=== PATIENT | male | born 1960 | race Caucasian/White ===

== ENCOUNTER 2017-07-12 09:54 | Day surgery (SDC) | payer OTHER ==
[~2017-07-12] VITALS: Ht 177.8 cm; Wt 97.1 kg
[~2017-07-12 09:54] MED LIST: ASPI81CH PO; Antivert25 MG PO; Cyclobenzaprine5 MG PO; DIPH50 PO; FAMO20 PO; GLIM2 PO; GLIM4 PO; HYDACE5 PO; IBUP800 PO; INSULANPEN SC; Keflex500 MG PO; LISI10 PO; LISI20 PO; LISINOPRIL 40MG PO; METF500; METF500 PO; METF850 PO; NAPR500 PO; NITR.4SL SL; Naprosyn500 MG PO; Norco 5-325 Ta1 EACH PO; PIOG15; SIMV40 PO; Ultram50 MG PO; VARE1 PO; VICODIN 5-3001 EACH PO; [UNRECOGNIZED DRUG - REMARK]
== END 2017-07-12 22:39 | disposition home or self-care (01) ==
LOC: ORSCMMR 09:54 → ORD 11:30 → ORSCSDS 15:00 → ORSCMMR 22:39 → ORSCSDS 09-15 10:00
PROVIDERS: Internal Medicine Gastroenterology
PROC: 0DBL8ZX Excision of Transverse Colon, Via Natural or Artificial Opening Endoscopic, Diagnostic (ICD-10-PCS; principal; 2017-07-12 11:30)
PROC: 0DBM8ZX Excision of Descending Colon, Via Natural or Artificial Opening Endoscopic, Diagnostic (ICD-10-PCS; principal; 2017-07-12 11:30)
PROC: 0DBN8ZX Excision of Sigmoid Colon, Via Natural or Artificial Opening Endoscopic, Diagnostic (ICD-10-PCS; principal; 2017-07-12 11:30)
DX: Z12.11 Encounter for screening for malignant neoplasm of colon (principal); Z86.010 Personal history of colon polyps; D12.3 Benign neoplasm of transverse colon; D12.4 Benign neoplasm of descending colon; K63.5 Polyp of colon; K64.8 Other hemorrhoids; E11.9 Type 2 diabetes mellitus without complications; I10 Essential (primary) hypertension; E78.5 Hyperlipidemia, unspecified; Z79.899 Other long term (current) drug therapy; Z79.82 Long term (current) use of aspirin; Z87.891 Personal history of nicotine dependence; G47.33 Obstructive sleep apnea (adult) (pediatric)
CPT/HCPCS: 82947; 88305; 93005; 93010; J2250; J3010; J7120

== ENCOUNTER 2020-11-14 04:53 | Emergency (ER) | payer OTHER ==
[~2020-11-14] VITALS: Ht 177.8 cm; Wt 90.7 kg
[~2020-11-14 04:53] MED LIST changes: -ASPI81CH PO; +Aspir 8181 MG PO; +METF500C PO; -METF850 PO
[2020-11-14 06:54] LABS: BASOPHILS ABSOLUTE AUTO 0.02 K/mm3 (0.00-0.23); BASOPHILS PERCENT AUTO 1 % (0-2); EOSINOPHILS PERCENT AUTO 0 % (0-6); Hematocrit 48.1 % (37.0-53.0); Hemoglobin 15.8 g/dL (13.5-17.5); IMMATURE GRAN ABSOLUTE AUTO 0.04 K/mm3 (0.00-0.10); IMMATURE GRAN PERCENT AUTO 1 % (0-1); LYMPHOCYTES PERCENT AUTO 15 % (21-46); MONOCYTES ABSOLUTE AUTO 0.39 K/mm3 (0.16-1.47); MONOCYTES PERCENT AUTO 12 % (4-13); Mean Corpuscular HGB 29.5 pg (26.0-34.0); Mean Corpuscular HGB Conc 32.8 g/dL (31.5-36.5); Mean Corpuscular Volume 90 fL (80-100); Mean Platelet Volume 10.1 fL (9.1-12.4); NEUTROPHILS ABSOLUTE AUTO 2.38 K/mm3 (1.96-9.15); NEUTROPHILS PERCENT AUTO 72 % (41-73); Platelet Count 116 K/mm3 (150-400); RDW Coefficient Variation 13.8 % (11.7-14.2); RDW Standard Deviation 45.4 fL (35.1-46.3); Red Blood Cell Count 5.36 M/mm3 (4.30-5.90); White Blood Cell Count 3.33 K/mm3 (4.00-11.30)
[2020-11-14 07:13] LABS: Alanine Aminotransfer (ALT/SGP 28 U/L (12-78); Albumin/Globulin Ratio 0.8 (0.8-1.8); Alk Phos 41 U/L (50-136); Anion Gap 12 mmol/L (6-16); Aspartate Aminotrans (AST/SGOT 26 U/L (12-37); Bilirubin, Total 0.8 mg/dL (0.1-1.0); Blood Urea Nitrogen 13 mg/dL (8-24); Bun/Creatinine Ratio 19.9 (12.0-20.0); CO2, Blood 22 mmol/L (21-32); Calcium, Blood 8.3 mg/dL (8.5-10.1); Chloride, Blood 103 mmol/L (98-108); Creatinine, Blood 0.65 mg/dL (0.60-1.20); Globulin, Blood 3.9 g/dL (2.2-4.0); Glomerular Filtration Rate >60 (60-); Glucose, Blood 163 mg/dL (70-99); Potassium, Blood 4.2 mmol/L (3.5-5.5); Sodium, Blood 137 mmol/L (136-145); Total Protein, Blood 6.9 g/dL (6.4-8.2); Troponin I <0.015 ng/mL (0.000-0.040)
[2020-11-14] MEDS ORDERED: ALBU90OI INH (07:50)
== END 2020-11-14 08:11 | disposition home or self-care (01) ==
LOC: ER 04:53
PROVIDERS: Emergency Medicine
DX: U07.1 COVID-19 (principal); E11.9 Type 2 diabetes mellitus without complications; Z79.84 Long term (current) use of oral hypoglycemic drugs; Z79.899 Other long term (current) drug therapy; Z79.82 Long term (current) use of aspirin
CPT/HCPCS: 36415; 71045; 80053; 84484; 85025; 93005; 93010; 99284-25

== ENCOUNTER 2020-11-16 17:41 | Inpatient (IN) | payer OTHER ==
[~2020-11-16] VITALS: Ht 177.8 cm; Wt 83.7 kg
[~2020-11-16 17:41] MED LIST changes: +ALBU90OI INH
[2020-11-16] MEDS ORDERED: Hytrin2 MG PO (18:01)
[2020-11-16] MEDS ORDERED: JARDIANCE10 MG PO (18:01)
[2020-11-16 18:14] LABS: BASOPHILS ABSOLUTE AUTO 0.02 K/mm3 (0.00-0.23); BASOPHILS PERCENT AUTO 0 % (0-2); EOSINOPHILS PERCENT AUTO 0 % (0-6); Hematocrit 48.7 % (37.0-53.0); Hemoglobin 16.3 g/dL (13.5-17.5); IMMATURE GRAN ABSOLUTE AUTO 0.11 K/mm3 (0.00-0.10); IMMATURE GRAN PERCENT AUTO 2 % (0-1); LYMPHOCYTES ABSOLUTE AUTO 0.65 K/mm3 (0.84-5.20); LYMPHOCYTES PERCENT AUTO 13 % (21-46); MONOCYTES ABSOLUTE AUTO 0.61 K/mm3 (0.16-1.47); MONOCYTES PERCENT AUTO 12 % (4-13); Mean Corpuscular HGB Conc 33.5 g/dL (31.5-36.5); Mean Corpuscular Volume 87 fL (80-100); Mean Platelet Volume 9.8 fL (9.1-12.4); NEUTROPHILS ABSOLUTE AUTO 3.54 K/mm3 (1.96-9.15); NEUTROPHILS PERCENT AUTO 72 % (41-73); Platelet Count 218 K/mm3 (150-400); RDW Coefficient Variation 13.9 % (11.7-14.2); RDW Standard Deviation 44.9 fL (35.1-46.3); Red Blood Cell Count 5.62 M/mm3 (4.30-5.90); White Blood Cell Count 4.93 K/mm3 (4.00-11.30)
[2020-11-16 18:33] LABS: Alanine Aminotransfer (ALT/SGP 26 U/L (12-78); Albumin, Blood 2.7 g/dL (3.4-5.0); Albumin/Globulin Ratio 0.6 (0.8-1.8); Alk Phos 48 U/L (50-136); Anion Gap 14 mmol/L (6-16); Aspartate Aminotrans (AST/SGOT 28 U/L (12-37); Bilirubin, Total 0.9 mg/dL (0.1-1.0); Blood Urea Nitrogen 12 mg/dL (8-24); Bun/Creatinine Ratio 20.4 (12.0-20.0); CO2, Blood 20 mmol/L (21-32); Calcium, Blood 8.7 mg/dL (8.5-10.1); Chloride, Blood 104 mmol/L (98-108); Creatinine, Blood 0.59 mg/dL (0.60-1.20); Globulin, Blood 4.4 g/dL (2.2-4.0); Glomerular Filtration Rate >60 (60-); Glucose, Blood 209 mg/dL (70-99); Potassium, Blood 3.8 mmol/L (3.5-5.5); Sodium, Blood 138 mmol/L (136-145); Total Protein, Blood 7.1 g/dL (6.4-8.2)
[2020-11-16] MEDS ORDERED: TRULICITY1.5 MG/0.1 SC (19:14)
[2020-11-17 05:56] LABS: BASOPHILS ABSOLUTE AUTO 0.03 K/mm3 (0.00-0.23); BASOPHILS PERCENT AUTO 1 % (0-2); EOSINOPHILS PERCENT AUTO 0 % (0-6); Hemoglobin 15.8 g/dL (13.5-17.5); IMMATURE GRAN PERCENT AUTO 6 % (0-1); LYMPHOCYTES ABSOLUTE AUTO 0.56 K/mm3 (0.84-5.20); LYMPHOCYTES PERCENT AUTO 17 % (21-46); MONOCYTES ABSOLUTE AUTO 0.43 K/mm3 (0.16-1.47); MONOCYTES PERCENT AUTO 13 % (4-13); Mean Corpuscular HGB 29.3 pg (26.0-34.0); Mean Corpuscular HGB Conc 32.9 g/dL (31.5-36.5); Mean Corpuscular Volume 89 fL (80-100); Mean Platelet Volume 9.8 fL (9.1-12.4); NEUTROPHILS PERCENT AUTO 62 % (41-73); Platelet Count 220 K/mm3 (150-400); RDW Coefficient Variation 13.9 % (11.7-14.2); RDW Standard Deviation 45.7 fL (35.1-46.3); Red Blood Cell Count 5.39 M/mm3 (4.30-5.90); White Blood Cell Count 3.22 K/mm3 (4.00-11.30)
[2020-11-17 06:27] LABS: BAND PERCENT MAN 6 % (0-8); BASOPHILS PERCENT MAN 0 % (0-2); EOSINOPHILS PERCENT MAN 0 % (0-6); LYMPHOCYTES % ATYPICAL MANUAL 1 % (0-0); LYMPHOCYTES ABSOLUTE MAN 0.28 K/mm3 (0.84-5.20); LYMPHOCYTES PERCENT MAN 8 % (21-46); METAMYELOCYTE ABSOLUTE MAN 0.03 K/mm3 (0.00-0.00); METAMYELOCYTE PERCENT MAN 1 % (0-0); MONOCYTES ABSOLUTE MAN 0.22 K/mm3 (0.16-1.47); MONOCYTES PERCENT MAN 7 % (4-13); MYELOCYTE ABSOLUTE MAN 0.03 K/mm3 (0.00-0.00); MYELOCYTE PERCENT MAN 1 % (0-0); NEUTROPHILS ABSOLUTE MAN 2.64 K/mm3 (1.96-9.15); SEG NEUTROPHILS PERCENT MAN 76 % (41-73); TOTAL CELLS COUNTED 100
[2020-11-17 06:32] LABS: Alanine Aminotransfer (ALT/SGP 24 U/L (12-78); Albumin, Blood 2.5 g/dL (3.4-5.0); Albumin/Globulin Ratio 0.6 (0.8-1.8); Alk Phos 46 U/L (50-136); Anion Gap 14 mmol/L (6-16); Aspartate Aminotrans (AST/SGOT 21 U/L (12-37); Bilirubin, Total 0.8 mg/dL (0.1-1.0); Blood Urea Nitrogen 14 mg/dL (8-24); Bun/Creatinine Ratio 22.6 (12.0-20.0); CO2, Blood 19 mmol/L (21-32); Calcium, Blood 8.3 mg/dL (8.5-10.1); Chloride, Blood 106 mmol/L (98-108); Creatinine, Blood 0.62 mg/dL (0.60-1.20); Globulin, Blood 4.2 g/dL (2.2-4.0); Glomerular Filtration Rate >60 (60-); Glucose, Blood 255 mg/dL (70-99); Sodium, Blood 139 mmol/L (136-145); Total Protein, Blood 6.7 g/dL (6.4-8.2)
--- NOTE | 2020-11-17 18:42 | NUR ---
PATIENT IS ALERT AND ORIENTED. ON 10L O2 NC. INDEPENDENT WITH URINAL. BG ACHS. TELE IN PLACE AT . [facility] DIET.
--- NOTE | 2020-11-18 04:03 | NUR ---
SHIFT SUMMARY ASSUMED CARE OF PT AT 1900. PT IS A/OX4. HEART SOUNDS REGULAR, LUNG SOUNDS HAVE CRACKLES IN THE BASES. PT IS ON 9L OXIMIZER, TITRATED FROM 11L. SATURATIONS HAVE BEEN STABLE. PT USED URINAL AT BEDSIDE. CALL LIGHT IN REACH, BED IN LOWEST POSITON
[2020-11-18 05:12] LABS: BASOPHILS ABSOLUTE AUTO 0.04 K/mm3 (0.00-0.23); BASOPHILS PERCENT AUTO 1 % (0-2); EOSINOPHILS PERCENT AUTO 0 % (0-6); IMMATURE GRAN ABSOLUTE AUTO 0.33 K/mm3 (0.00-0.10); IMMATURE GRAN PERCENT AUTO 5 % (0-1); LYMPHOCYTES ABSOLUTE AUTO 0.78 K/mm3 (0.84-5.20); LYMPHOCYTES PERCENT AUTO 12 % (21-46); MONOCYTES ABSOLUTE AUTO 0.99 K/mm3 (0.16-1.47); MONOCYTES PERCENT AUTO 15 % (4-13); Mean Corpuscular HGB 29.4 pg (26.0-34.0); Mean Corpuscular Volume 86 fL (80-100); Mean Platelet Volume 9.7 fL (9.1-12.4); NEUTROPHILS ABSOLUTE AUTO 4.63 K/mm3 (1.96-9.15); NEUTROPHILS PERCENT AUTO 68 % (41-73); Platelet Count 274 K/mm3 (150-400); RDW Coefficient Variation 13.7 % (11.7-14.2); RDW Standard Deviation 43.6 fL (35.1-46.3); Red Blood Cell Count 5.44 M/mm3 (4.30-5.90); White Blood Cell Count 6.77 K/mm3 (4.00-11.30)
[2020-11-18 05:31] LABS: Anion Gap 10 mmol/L (6-16); Blood Urea Nitrogen 21 mg/dL (8-24); CO2, Blood 23 mmol/L (21-32); Calcium, Blood 8.7 mg/dL (8.5-10.1); Chloride, Blood 106 mmol/L (98-108); Creatinine, Blood 0.55 mg/dL (0.60-1.20); Glomerular Filtration Rate >60 (60-); Glucose, Blood 318 mg/dL (70-99); Potassium, Blood 3.9 mmol/L (3.5-5.5); Sodium, Blood 139 mmol/L (136-145)
--- NOTE | 2020-11-18 12:28 | NUR ---
11/18/20- Pt tested positive on 11/07/20. Non-vaccinated. Currently on 9L which is down from 11L. PT ordered and is recommending home health when stable to discharge. No d/c plan at this time. -edna
--- NOTE | 2020-11-18 18:31 | NUR ---
PT IS A/OX3, PLEASANT AND COOPERATIVE, THE PT DENIESD ANY PAIN T/O THE DAY. THE PT WAS TITRATED DOWN FROM 11L/MIN O2 VIA OXYMIZER TO 5L/MIN VIA OXYMIZER AT THIS TIME. THE PTS O2 SAT'S IMPROVED AFTER PHYSICAL THERAPY TODAY AND WHILE HE WAS UP IN THE CHAIR. CALL LIGHT IN REACH, WILL CONTINUE TO MONITOR AND ASSESS FOR CHANGES
--- NOTE | 2020-11-19 03:42 | NUR ---
MEDICAL ASSOCIATE SUMMARY HAD DOSE OF REMDESIVIR AT HS. LUNG SOUNDS DIMINISHED. INTERMITTENT COUGHING, BUT NO NOTED PRODUCTIVE COUGH. HAS BEEN RESTING WITH FEW INTERRUPTIONS SINCE HS, O2 AT 8L/MIN PER NC. CALL LIGHT IN REACH. ISOLATION PRECAUTIONS MAINTAINED.
--- NOTE | 2020-11-19 16:26 | NUR ---
MAKES NEEDS KNOWN, A&OX4, CALL LIGHT WITH IN REACH, STEADY GAIT TO BSC, PLEASANT TO CARE, LS- DIMINISHED BASES, CLEARS CONGESTION, DENEIS SOB, HEART RRR TRISTEN AT TIMES, DENIES CHEST PAIN, ACTIVE BT, GOOD APPETTITE, BSU AND BSC TO VOID, CSM+, +PULSES, ROM INTACT, WCTM BS AT 1200 [id number], SS COVERAGE CHANGED TO THE HIGH SCALE
--- NOTE | 2020-11-19 17:43 | NUR ---
PATEINT SITTING IN CHAIR EATING DINNER, NO COMPLAINTS OR CONCERNS
--- NOTE | 2020-11-20 04:35 | NUR ---
ANIMAL TRAINER SUMMARY HAS BEEN RESTING QUIETLY WITH FEW INTERRUPTIONS SINCE HS. RECEIVED ANOTHER DOSE OF REMDESIVIR AT HS. MED TELE REMAINS IN U SE AND CONTINUES TO DISPLAY SINUS TRISTEN 40'S TO 50'S, BUT WHEN ASSESSED, DENIED ANY DISTRESS AT THOSE TIMES. LUNG SOUNDS MORE CLEAR TO AUSCULTATION. O2 7L/MIN PER OXIMIZER. CALL LIGHT IN REACH. ISOLATION PRECAUTIONS MAINTAINED.
--- NOTE | 2020-11-20 10:43 | NUR ---
titrating oxygen down, possible discharge tomorrow, pleasant to care
--- NOTE | 2020-11-20 18:40 | NUR ---
PATIENT HAS TOELRATED 5L NC, NO SOB, CALL LIGHT WITH IN REAC, MAKES NEEDS KNOWN, POSSIBLE DISCHARGE TOMORROW, FORGETFUL AT TIMES, PLEASANT TO CARE, WCTM
--- NOTE | 2020-11-21 06:28 | NUR ---
SHIFT SUMMARY PATIENT ALERT AND ORIENTED. HAD NO COMPLAINTS OF PAIN OR SHORTNESS OF BREATH. NO ACUTE ISSUES NOTED. RT TITRATED PATIENT DOWN TO 3 LITERS O2 VIA NC. CALL LIGHT WITHIN REACH. REPORT GIVEN TO ONCOMING RN.
--- NOTE | 2020-11-21 16:04 | NUR ---
HOME O2 EVAL CHARGE NURSE NOTIFIED THIS NURSE TO DO HOME O2 EVAL. AT REST PT WAS 93% ON 3L O2 VIA NC. PT DESAT TO 86% ON RA. ONCE RECOVERED AT 93% ON 3L, PT AMBULATED AROUND ROOM. PT REMAINED 93% ON 3L WITH EXERTION. JOHN FROM [facility] NOTIFIED WHO STATED THAT HOME O2 IS INDICATED. AWAITING [facility] ARRIV[facility] TO DROP OFF O2 TANK AT THIS TIME.
--- NOTE | 2020-11-21 16:09 | NUR ---
Update 11/21/20: Per Dr. Ceja, pt. appropriate for discharge. Home O2 results 86% on RA at rest. Pt. at 93% on 3LPM oxygen. Able to maitain oxygen sats at 93% while ambulating on 3LPM. Ordered home O2 through [facility]. Also ordered portable O2 tank to be delivered to room 308-2 at [facility] within the next hour. Pt. does not have transportation home and remains weak. Scheduled wheelchair van transport for pt. through [facility]. Soonest available pick-up time is 6:30 pm. Scheduled pt. for hospital F/U with PCP Dr. Doyle on 11/26/20 via telehealth at 12pm. Pt. will be provided with discharge letter and apppointment information. No further needs at this time.
[2020-11-21] MEDS ORDERED: Prednisone10 MG PO (16:35)
[2020-11-21] MEDS ORDERED: XARELTO20 MG PO (16:35)
--- NOTE | 2020-11-21 18:28 | NUR ---
PT AOX4 AND COOPERATIVE OF CARE. PT HAD ALL PAPERWORK REVEIWED AND EDUCATIONAL MATERIAL SENT. PT HAD TO TRANSPORT HOME AND O2 WAS DROPPED OFF PRIOR TO DISCHARGE FOR RIDE HOME. PT HAD ALL PERSONAL BELONGINGS NO DISTRESS NOTED. PT ESCORTED OUT VIA WHEEL CHAIR BY AID TO N ENTRANCE.
== END 2020-11-21 18:25 | disposition home or self-care (01) | DRG 177 ==
LOC: ER 17:41 → MEDS 20:38 → ERHOLD 20:38 → MEDS 11-17 13:45
PROVIDERS: Physician Assistant; Student in an Organized Health Care Education/Training Program; ADMIT Internal Medicine
PROC: XW033E5 Introduction of Remdesivir Anti-infective into Peripheral Vein, Percutaneous Approach, New Technology Group 5 (ICD-10-PCS; principal; 2020-11-16)
PROC: 8E0ZXY6 Isolation (ICD-10-PCS; 2020-11-16)
PROC: 3E0DX3Z Introduction of Anti-inflammatory into Mouth and Pharynx, External Approach (ICD-10-PCS; 2020-11-16)
DX: U07.1 COVID-19 (principal); J96.01 Acute respiratory failure with hypoxia; J12.82 Pneumonia due to coronavirus disease 2019; J44.0 Chronic obstructive pulmonary disease with (acute) lower respiratory infection; I10 Essential (primary) hypertension; R63.4 Abnormal weight loss; D47.3 Essential (hemorrhagic) thrombocythemia; E11.9 Type 2 diabetes mellitus without complications; Z90.89 Acquired absence of other organs; Z98.890 Other specified postprocedural states; Z87.891 Personal history of nicotine dependence; Z79.84 Long term (current) use of oral hypoglycemic drugs; Z79.82 Long term (current) use of aspirin; Z79.899 Other long term (current) drug therapy; Z68.28 Body mass index [BMI] 28.0-28.9, adult
CPT/HCPCS: 36415; 71045; 71260; 80048; 80053; 82947; 84145; 84484; 85025; 85379; 93005; 93010; 94640; 94760; 94762; 96365; 96366; 96375; 97110; 97116; 97162; 97530; 99285-25; A9270; J1100; J1650; J7030; J7050; Q9967

== ENCOUNTER 2021-10-20 10:19 | Day surgery (SDC) | payer BC, OTHER ==
[~2021-10-20] VITALS: Ht 177.8 cm; Wt 89.3 kg
[~2021-10-20 10:19] MED LIST changes: +Hytrin2 MG PO; +JARDIANCE10 MG PO; +Prednisone10 MG PO; +TRULICITY1.5 MG/0.1 SC; +XARELTO20 MG PO
[2021-10-20] MEDS ORDERED: JARDIANCE10 MG PO (11:15)
== END 2021-10-20 12:42 | disposition home or self-care (01) ==
LOC: ORSCSDS 10:19
PROVIDERS: Internal Medicine Gastroenterology
PROC: 0DBL8ZX Excision of Transverse Colon, Via Natural or Artificial Opening Endoscopic, Diagnostic (ICD-10-PCS; principal; 2021-10-20 12:00)
DX: Z12.11 Encounter for screening for malignant neoplasm of colon (principal); D12.3 Benign neoplasm of transverse colon; K64.8 Other hemorrhoids; Z86.010 Personal history of colon polyps; Z79.84 Long term (current) use of oral hypoglycemic drugs; Z79.899 Other long term (current) drug therapy
CPT/HCPCS: 82947; 88305; J2704; J7120

== ENCOUNTER 2024-09-30 09:12 | Day surgery (SDC) | payer BC | END 2024-09-30 23:00 | disposition home or self-care (01) | LOC: CT 09:12 | DX: I25.10 Atherosclerotic heart disease of native coronary artery without angina pectoris (principal) | CPT/HCPCS: 75571 ==